=== PATIENT | male | born 1955 | race Caucasian/White ===

== ENCOUNTER 2018-01-12 11:48 | Inpatient (IN) | payer OTHER, BC ==
[2018-01-12] MEDS: diazePAM 5 MG TAB PO (13:39)
[2018-01-12 13:40] LABS: BASO % 0.5 % (0.0-1.0); EOS # 0.3 10^3/uL (0.0-0.50); HEMATOCRIT 33.7 % (42.0-52.0); HEMOGLOBIN 11.4 g/dl (13.5-17.5); IMMATURE GRANULOCYTE % 0.9 % (0-3.0); LYMPH # 1.4 10^3/uL (1.5-4.5); LYMPH % 20.4 % (24.0-44.0); MEAN CORPUSCULAR HEMOGLOBIN 33.7 pg (27.0-33.0); MEAN CORPUSCULAR HGB CONC 33.8 g/dl (32.0-36.5); MEAN CORPUSCULAR VOLUME 99.7 fl (80.0-96.0); MONO # 0.8 10^3/uL (0.0-0.8); NEUTROPHILS # 4.1 10^3/uL (1.8-7.7); NEUTROPHILS % 61.2 % (36.0-66.0); PLATELET COUNT, AUTOMATED 132 10^3/uL (150-450); RED BLOOD COUNT 3.38 10^6/uL (4.30-6.10); WHITE BLOOD COUNT 6.7 10^3/uL (4.0-10.0)
[2018-01-12] MEDS: HYDROmorphone HCL 1 MG/ML SYRINGE (J1170) IV ×3 (13:40→20:48)
[2018-01-12 14:03] LABS: LACTIC ACID SEPSIS PROTOCOL 0.8 MMOL/L (0.4-2.0)
[2018-01-12 14:04] LABS: ANION GAP 5 MEQ/L (8-16); BLOOD UREA NITROGEN 22 MG/DL (7-18); C REACTIVE PROTEIN QUANTITATIV 1.19 MG/DL (0.00-0.30); CALCIUM LEVEL 8.8 MG/DL (8.8-10.2); CARBON DIOXIDE LEVEL 23 MEQ/L (21-32); CHLORIDE LEVEL 113 MEQ/L (98-107); CREATININE FOR GFR 1.02 MG/DL (0.70-1.30); GLOMERULAR FILTRATION RATE > 60.0 (>49); GLUCOSE, FASTING 94 MG/DL (70-100); NT-PRO BNP 896 PG/ML (<125); POTASSIUM SERUM 4.6 MEQ/L (3.5-5.1); SODIUM LEVEL 141 MEQ/L (136-145)
[2018-01-12 14:07] LABS: ERYTHROCYTE SEDIMENTATION RATE 60 mm/hr (0-20)
[2018-01-12] MEDS ORDERED: ONDANSETRON 4MG/2ML VIAL (J2405) IV (15:30)
[2018-01-12] MEDS ORDERED: ACETAMINOPHEN TAB 650MG DOSE (2X325MG) PO (15:30)
[2018-01-12 15:57] LABS: ESTIMATED AVERAGE GLUCOSE 117 MG/DL (60-110); HEMOGLOBIN A1c 5.7 %
[2018-01-12] MEDS ORDERED: PROHANCE 279.3MG/ML 15ML VIAL (A9576) As Ordered (16:20)
[2018-01-12] MEDS ORDERED: PROHANCE 279.3MG/ML 5ML VIAL (A9576) As Ordered (16:20)
[2018-01-12] MEDS: GABAPENTIN 300 MG CAP PO ×2 (16:54→20:46)
[2018-01-12] MEDS: CEFTAROLINE FOSAMIL 600 MG in D5W MINI-BAG PLUS 50 ML IV (16:54)
[2018-01-12] MEDS: FUROSEMIDE 20 MG/2 ML VIAL (J1940) IV (17:27)
[2018-01-12] MEDS: SENOKOT S TAB PO (20:46)
[2018-01-12] MEDS: PRAMIPEXOLE 0.25 MG TAB PO (20:46)
[2018-01-12] MEDS: rOPINIRole 0.25 MG TAB(REQUIP) PO (20:46)
[2018-01-12] MEDS: HEPARIN SOD (PORCINE) 5000 UNITS/ML VIAL SC (23:11)
[2018-01-12] MEDS: PERCOCET 5MG/325MG TAB PO (23:12)
[2018-01-13] MEDS: HEPARIN SOD (PORCINE) 5000 UNITS/ML VIAL SC ×3 (05:25→20:35)
[2018-01-13] MEDS: CEFTAROLINE FOSAMIL 600 MG in D5W MINI-BAG PLUS 50 ML IV ×2 (05:25→17:00)
[2018-01-13 05:53] LABS: HEMATOCRIT 31.1 % (42.0-52.0); HEMOGLOBIN 10.6 g/dl (13.5-17.5); MEAN CORPUSCULAR HEMOGLOBIN 33.8 pg (27.0-33.0); MEAN CORPUSCULAR HGB CONC 34.1 g/dl (32.0-36.5); PLATELET COUNT, AUTOMATED 118 10^3/uL (150-450); RED BLOOD COUNT 3.14 10^6/uL (4.30-6.10); RED CELL DISTRIBUTION WIDTH 14.9 % (11.5-14.5); WHITE BLOOD COUNT 5.1 10^3/uL (4.0-10.0)
[2018-01-13 06:19] LABS: ANION GAP 4 MEQ/L (8-16); BLOOD UREA NITROGEN 25 MG/DL (7-18); C REACTIVE PROTEIN QUANTITATIV 1.53 MG/DL (0.00-0.30); CALCIUM LEVEL 8.6 MG/DL (8.8-10.2); CARBON DIOXIDE LEVEL 24 MEQ/L (21-32); CHLORIDE LEVEL 114 MEQ/L (98-107); CREATININE FOR GFR 1.04 MG/DL (0.70-1.30); GLOMERULAR FILTRATION RATE > 60.0 (>49); GLUCOSE, FASTING 104 MG/DL (70-100); MAGNESIUM LEVEL 1.9 MG/DL (1.8-2.4); POTASSIUM SERUM 4.6 MEQ/L (3.5-5.1); SODIUM LEVEL 142 MEQ/L (136-145)
[2018-01-13] MEDS: ASPIRIN 81 MG ENTERIC TAB PO (08:40)
[2018-01-13] MEDS: MULTIVITAMINS/MINERALS THERAP 1 TAB PO (08:40)
[2018-01-13] MEDS: GABAPENTIN 300 MG CAP PO ×3 (08:40→20:14)
[2018-01-13] MEDS: FUROSEMIDE 20 MG/2 ML VIAL (J1940) IV ×2 (08:41→16:59)
[2018-01-13] MEDS: CitaloPRAM (CeleXA) 10 MG TABLET PO (08:41)
[2018-01-13] MEDS: ALLOPURINOL 100 MG TAB PO (08:41)
[2018-01-13] MEDS: SENOKOT S TAB PO ×2 (08:41→20:35)
[2018-01-13] MEDS: VITAMIN B COMPLEX/VIT C CAP PO (08:41)
[2018-01-13] MEDS: METOPROLOL TARTRATE 100 MG TAB PO (08:41)
[2018-01-13] MEDS: HYDROmorphone HCL 1 MG/ML SYRINGE (J1170) IV ×4 (08:57→21:13)
[2018-01-13] MEDS ORDERED: amLODIPine 5 MG TAB PO (09:00)
[2018-01-13] MEDS: rOPINIRole 0.25 MG TAB(REQUIP) PO (20:15)
[2018-01-13] MEDS: PRAMIPEXOLE 0.25 MG TAB PO (20:15)
[2018-01-14] MEDS: HYDROmorphone HCL 1 MG/ML SYRINGE (J1170) IV ×4 (03:41→22:13)
[2018-01-14] MEDS: HEPARIN SOD (PORCINE) 5000 UNITS/ML VIAL SC ×3 (05:16→20:52)
[2018-01-14] MEDS: CEFTAROLINE FOSAMIL 600 MG in D5W MINI-BAG PLUS 50 ML IV ×2 (05:16→17:06)
[2018-01-14 07:04] LABS: HEMATOCRIT 29.8 % (42.0-52.0); HEMOGLOBIN 10.2 g/dl (13.5-17.5); MEAN CORPUSCULAR HEMOGLOBIN 33.8 pg (27.0-33.0); MEAN CORPUSCULAR HGB CONC 34.2 g/dl (32.0-36.5); MEAN CORPUSCULAR VOLUME 98.7 fl (80.0-96.0); PLATELET COUNT, AUTOMATED 101 10^3/uL (150-450); RED BLOOD COUNT 3.02 10^6/uL (4.30-6.10); RED CELL DISTRIBUTION WIDTH 14.9 % (11.5-14.5); WHITE BLOOD COUNT 4.5 10^3/uL (4.0-10.0)
[2018-01-14 07:21] LABS: ANION GAP 6 MEQ/L (8-16); BLOOD UREA NITROGEN 30 MG/DL (7-18); C REACTIVE PROTEIN QUANTITATIV 1.31 MG/DL (0.00-0.30); CALCIUM LEVEL 8.4 MG/DL (8.8-10.2); CARBON DIOXIDE LEVEL 24 MEQ/L (21-32); CHLORIDE LEVEL 112 MEQ/L (98-107); CREATININE FOR GFR 1.11 MG/DL (0.70-1.30); GLOMERULAR FILTRATION RATE > 60.0 (>49); GLUCOSE, FASTING 117 MG/DL (70-100); MAGNESIUM LEVEL 1.8 MG/DL (1.8-2.4); POTASSIUM SERUM 4.2 MEQ/L (3.5-5.1); SODIUM LEVEL 142 MEQ/L (136-145)
[2018-01-14] MEDS: FUROSEMIDE 20 MG/2 ML VIAL (J1940) IV ×2 (08:53→17:06)
[2018-01-14] MEDS: ASPIRIN 81 MG ENTERIC TAB PO (08:56)
[2018-01-14] MEDS: VITAMIN B COMPLEX/VIT C CAP PO (08:56)
[2018-01-14] MEDS: ALLOPURINOL 100 MG TAB PO (08:56)
[2018-01-14] MEDS: SENOKOT S TAB PO ×2 (08:56→20:53)
[2018-01-14] MEDS: CitaloPRAM (CeleXA) 10 MG TABLET PO (08:56)
[2018-01-14] MEDS: MULTIVITAMINS/MINERALS THERAP 1 TAB PO (08:56)
[2018-01-14] MEDS: METOPROLOL TARTRATE 100 MG TAB PO (08:57)
[2018-01-14] MEDS: GABAPENTIN 300 MG CAP PO ×3 (08:57→20:53)
[2018-01-14] MEDS: NEOSPORIN TOP OINT 15GM TOP (09:00)
[2018-01-14] MEDS: PERCOCET 5MG/325MG TAB PO ×2 (15:03→20:53)
[2018-01-14] MEDS: rOPINIRole 0.25 MG TAB(REQUIP) PO (20:54)
[2018-01-14] MEDS: PRAMIPEXOLE 0.25 MG TAB PO (20:54)
[2018-01-15] MEDS: CEFTAROLINE FOSAMIL 600 MG in D5W MINI-BAG PLUS 50 ML IV ×2 (05:13→12:40)
[2018-01-15] MEDS: PERCOCET 5MG/325MG TAB PO (05:13)
[2018-01-15 06:28] LABS: HEMATOCRIT 29.8 % (42.0-52.0); HEMOGLOBIN 10.2 g/dl (13.5-17.5); MEAN CORPUSCULAR HEMOGLOBIN 33.8 pg (27.0-33.0); MEAN CORPUSCULAR HGB CONC 34.2 g/dl (32.0-36.5); MEAN CORPUSCULAR VOLUME 98.7 fl (80.0-96.0); PLATELET COUNT, AUTOMATED 114 10^3/uL (150-450); RED BLOOD COUNT 3.02 10^6/uL (4.30-6.10); RED CELL DISTRIBUTION WIDTH 14.6 % (11.5-14.5); WHITE BLOOD COUNT 4.5 10^3/uL (4.0-10.0)
[2018-01-15 06:42] LABS: ANION GAP 4 MEQ/L (8-16); BLOOD UREA NITROGEN 39 MG/DL (7-18); C REACTIVE PROTEIN QUANTITATIV 0.99 MG/DL (0.00-0.30); CALCIUM LEVEL 8.5 MG/DL (8.8-10.2); CARBON DIOXIDE LEVEL 26 MEQ/L (21-32); CHLORIDE LEVEL 111 MEQ/L (98-107); CREATININE FOR GFR 1.16 MG/DL (0.70-1.30); GLOMERULAR FILTRATION RATE > 60.0 (>49); GLUCOSE, FASTING 111 MG/DL (70-100); MAGNESIUM LEVEL 1.9 MG/DL (1.8-2.4); POTASSIUM SERUM 3.8 MEQ/L (3.5-5.1); SODIUM LEVEL 141 MEQ/L (136-145)
[2018-01-15] MEDS: HEPARIN SOD (PORCINE) 5000 UNITS/ML VIAL SC (07:40)
[2018-01-15] MEDS: FUROSEMIDE 20 MG/2 ML VIAL (J1940) IV (09:03)
[2018-01-15] MEDS: ASPIRIN 81 MG ENTERIC TAB PO (09:03)
[2018-01-15] MEDS: GABAPENTIN 300 MG CAP PO (09:03)
[2018-01-15] MEDS: ALLOPURINOL 100 MG TAB PO (09:03)
[2018-01-15] MEDS: VITAMIN B COMPLEX/VIT C CAP PO (09:03)
[2018-01-15] MEDS: CitaloPRAM (CeleXA) 10 MG TABLET PO (09:03)
[2018-01-15] MEDS: METOPROLOL TARTRATE 100 MG TAB PO (09:04)
[2018-01-15] MEDS: SENOKOT S TAB PO (09:04)
[2018-01-15] MEDS: NEOSPORIN TOP OINT 15GM TOP (09:04)
[2018-01-15] MEDS: MULTIVITAMINS/MINERALS THERAP 1 TAB PO (09:04)
== END 2018-01-15 14:10 | disposition home or self-care (01) | DRG 951 ==
LOC: M PED 01-13 18:15 → M ED 11:48 → M ED INP 15:18 → M MSPAV 17:08
PROC: 0JDQ0ZZ Extraction of Right Foot Subcutaneous Tissue and Fascia, Open Approach (ICD-10-PCS; principal; 2018-01-12)
DX: E11.622 Type 2 diabetes mellitus with other skin ulcer (principal); I50.32 Chronic diastolic (congestive) heart failure; L03.115 Cellulitis of right lower limb; E66.01 Morbid (severe) obesity due to excess calories; G47.33 Obstructive sleep apnea (adult) (pediatric); Z88.0 Allergy status to penicillin; Z88.2 Allergy status to sulfonamides; Z79.899 Other long term (current) drug therapy

== ENCOUNTER 2018-06-10 14:40 | Inpatient (IN) | payer OTHER ==
[2018-06-10 15:29] LABS: BASO % 0.4 % (0.0-1.0); EOS # 0.2 10^3/uL (0.0-0.50); EOS % 2.1 % (0.0-3.0); HEMATOCRIT 38.1 % (42.0-52.0); HEMOGLOBIN 13.1 g/dl (13.5-17.5); IMMATURE GRANULOCYTE % 0.7 % (0-3.0); LYMPH % 12.1 % (24.0-44.0); MEAN CORPUSCULAR HEMOGLOBIN 33.2 pg (27.0-33.0); MEAN CORPUSCULAR HGB CONC 34.4 g/dl (32.0-36.5); MEAN CORPUSCULAR VOLUME 96.5 fl (80.0-96.0); MONO # 0.9 10^3/uL (0.0-0.8); MONO % 10.7 % (0.0-5.0); NEUTROPHILS # 6.3 10^3/uL (1.8-7.7); PLATELET COUNT, AUTOMATED 132 10^3/uL (150-450); RED BLOOD COUNT 3.95 10^6/uL (4.30-6.10); RED CELL DISTRIBUTION WIDTH 14.7 % (11.5-14.5); WHITE BLOOD COUNT 8.6 10^3/uL (4.0-10.0)
[2018-06-10] MEDS: ACETAMINOPHEN 325 MG TAB PO (15:39)
[2018-06-10] MEDS: NS 1,000 ML IV ×3 (15:40→20:15)
[2018-06-10] MEDS: VANCOMYCIN HCL 1,000 MG, VIAL MATE ADAPTER 1 EACH in D5W 250 ML IV (15:46)
[2018-06-10 15:49] LABS: ALBUMIN 3.7 GM/DL (3.2-5.2); ALBUMIN/GLOBULIN RATIO 0.88 (1.00-1.93); ALKALINE PHOSPHATASE 151 U/L (45-117); ALT/SGPT 35 U/L (12-78); ANION GAP 11 MEQ/L (8-16); BILIRUBIN,DIRECT 0.3 MG/DL (0.0-0.2); BILIRUBIN,TOTAL 1.2 MG/DL (0.2-1.0); BLOOD UREA NITROGEN 23 MG/DL (7-18); CALCIUM LEVEL 8.9 MG/DL (8.8-10.2); CARBON DIOXIDE LEVEL 24 MEQ/L (21-32); CHLORIDE LEVEL 102 MEQ/L (98-107); CREATININE FOR GFR 1.27 MG/DL (0.70-1.30); GLOMERULAR FILTRATION RATE > 60.0 (>49); GLUCOSE, FASTING 159 MG/DL (70-100); POTASSIUM SERUM 4.6 MEQ/L (3.5-5.1); SODIUM LEVEL 137 MEQ/L (136-145); TOTAL PROTEIN 7.9 GM/DL (6.4-8.2)
[2018-06-10 15:50] LABS: AST/SGOT 49 U/L (7-37)
[2018-06-10 16:05] LABS: APPEARANCE, URINE CLEAR (CLEAR); BACTERIA, URINE AUTO NEGATIVE (NEGATIVE); BILIRUBIN, URINE AUTO NEGATIVE (NEGATIVE); BLOOD, URINE BLOOD NEGATIVE (NEGATIVE); COLOR, URINE YELLOW (YELLOW); GLUCOSE, URINE (UA) AUTO NEGATIVE (NEGATIVE); KETONE, URINE AUTO NEGATIVE (NEGATIVE); LEUKOCYTE ESTERASE, URINE AUTO NEGATIVE (NEGATIVE); NITRITE, URINE AUTO NEGATIVE (NEGATIVE); PROTEIN, URINE AUTO NEGATIVE (NEGATIVE); RBC, URINE AUTO 0 /HPF (0-3); SPECIFIC GRAVITY URINE AUTO 1.008 (1.002-1.035); SQUAMOUS EPITHELIAL CELL UR AU 0 /HPF (0-6); UROBILINOGEN, URINE AUTO 0.2 mg/dL (0.0-2.0); WBC, URINE AUTO 0 /HPF (0-3)
[2018-06-10 16:33] LABS: INFLUENZA A AMPLIFICATION NEGATIVE (NEGATIVE); INFLUENZA B AMPLIFICATION NEGATIVE (NEGATIVE)
[2018-06-10 16:53] LABS: ERYTHROCYTE SEDIMENTATION RATE 61 mm/hr (0-20)
[2018-06-10] MEDS: ONDANSETRON 4MG/2ML VIAL (J2405) IV (17:08)
[2018-06-10] MEDS: MORPHINE 2 MG/ML 1ML SYRINGE (J2270) IV (17:11)
[2018-06-10] MEDS: IBUPROFEN 800 MG TAB PO (17:18)
[2018-06-10] MEDS ORDERED: ONDANSETRON 4MG/2ML VIAL (J2405) IV (17:45)
[2018-06-10 17:52] LABS: CK-MB VALUE MASS < 1.0 NG/ML (<3.6); CPK CREATINE PHOSPHOKINASE 115 U/L (39-308); MB/CK RELATIVE INDEX 0.87 (< OR =4); TROPONIN I < 0.02 NG/ML (< 0.10)
[2018-06-10] MEDS: MEROPENEM INJ 1 GM in APPROPRIATE DILUENT 1 EA IV (18:49)
[2018-06-10] MEDS: GABAPENTIN 300 MG CAP PO (22:30)
[2018-06-10] MEDS: MORPHINE 15 MG SA TAB PO (22:30)
[2018-06-10] MEDS: PRAMIPEXOLE 1 MG TAB PO (22:31)
[2018-06-11] MEDS: MEROPENEM INJ 1 GM in APPROPRIATE DILUENT 1 EA IV ×3 (03:27→20:56)
[2018-06-11 05:52] LABS: BASO % 0.2 % (0.0-1.0); EOS # 0.3 10^3/uL (0.0-0.50); EOS % 3.2 % (0.0-3.0); HEMATOCRIT 32.6 % (42.0-52.0); IMMATURE GRANULOCYTE % 0.8 % (0-3.0); LYMPH # 1.7 10^3/uL (1.5-4.5); MEAN CORPUSCULAR HEMOGLOBIN 32.9 pg (27.0-33.0); MEAN CORPUSCULAR VOLUME 96.7 fl (80.0-96.0); MONO # 1.1 10^3/uL (0.0-0.8); MONO % 12.2 % (0.0-5.0); NEUTROPHILS # 5.9 10^3/uL (1.8-7.7); NEUTROPHILS % 64.6 % (36.0-66.0); PLATELET COUNT, AUTOMATED 116 10^3/uL (150-450); RED BLOOD COUNT 3.37 10^6/uL (4.30-6.10); WHITE BLOOD COUNT 9.1 10^3/uL (4.0-10.0)
[2018-06-11 06:00] LABS: HEMOGLOBIN 11.1 g/dl (13.5-17.5)
[2018-06-11 06:23] LABS: ALBUMIN 2.8 GM/DL (3.2-5.2); ALKALINE PHOSPHATASE 106 U/L (45-117); ALT/SGPT 22 U/L (12-78); ANION GAP 9 MEQ/L (8-16); AST/SGOT 29 U/L (7-37); BILIRUBIN,TOTAL 1.4 MG/DL (0.2-1.0); BLOOD UREA NITROGEN 32 MG/DL (7-18); C REACTIVE PROTEIN QUANTITATIV 7.21 MG/DL (0.00-0.30); CALCIUM LEVEL 7.8 MG/DL (8.8-10.2); CARBON DIOXIDE LEVEL 24 MEQ/L (21-32); CHLORIDE LEVEL 108 MEQ/L (98-107); CREATININE FOR GFR 1.69 MG/DL (0.70-1.30); GLUCOSE, FASTING 105 MG/DL (70-100); MAGNESIUM LEVEL 1.8 MG/DL (1.8-2.4); POTASSIUM SERUM 4.1 MEQ/L (3.5-5.1); SODIUM LEVEL 141 MEQ/L (136-145); TOTAL PROTEIN 6.3 GM/DL (6.4-8.2)
[2018-06-11] MEDS: NS 1,000 ML IV (06:39)
[2018-06-11] MEDS ORDERED: NS 1,000 ML IV (07:45)
[2018-06-11] MEDS: GABAPENTIN 300 MG CAP PO ×3 (08:03→20:56)
[2018-06-11] MEDS: VITAMIN B COMPLEX/VIT C CAP PO (08:03)
[2018-06-11] MEDS: MULTIVITAMINS/MINERALS THERAP 1 TAB PO (08:03)
[2018-06-11] MEDS: ALLOPURINOL 100 MG TAB PO (08:04)
[2018-06-11] MEDS: MORPHINE 15 MG SA TAB PO ×2 (08:05→20:56)
[2018-06-11] MEDS ORDERED: METOPROLOL TARTRATE 100 MG TAB PO (09:00)
[2018-06-11] MEDS: PERCOCET 5MG/325MG TAB PO ×2 (09:00→14:29)
[2018-06-11] MEDS ORDERED: amLODIPine 5 MG TAB PO (09:00)
[2018-06-11] MEDS: ENOXAPARIN 40 MG/0.4 ML SYRINGE (J1650) SC (09:31)
[2018-06-11] MEDS: PRAMIPEXOLE 1 MG TAB PO (20:56)
[2018-06-12] MEDS: NS 1,000 ML IV (00:02)
[2018-06-12] MEDS: PERCOCET 5MG/325MG TAB PO ×3 (03:47→22:30)
[2018-06-12] MEDS: MEROPENEM INJ 1 GM in APPROPRIATE DILUENT 1 EA IV ×3 (03:47→18:50)
[2018-06-12 05:55] LABS: BASO % 0.4 % (0.0-1.0); EOS # 0.2 10^3/uL (0.0-0.50); EOS % 4.7 % (0.0-3.0); IMMATURE GRANULOCYTE % 1.1 % (0-3.0); LYMPH # 0.8 10^3/uL (1.5-4.5); MEAN CORPUSCULAR HEMOGLOBIN 33.1 pg (27.0-33.0); MEAN CORPUSCULAR HGB CONC 33.3 g/dl (32.0-36.5); MEAN CORPUSCULAR VOLUME 99.4 fl (80.0-96.0); MONO # 0.6 10^3/uL (0.0-0.8); MONO % 12.9 % (0.0-5.0); NEUTROPHILS # 2.9 10^3/uL (1.8-7.7); NEUTROPHILS % 62.9 % (36.0-66.0); PLATELET COUNT, AUTOMATED 113 10^3/uL (150-450); RED BLOOD COUNT 3.32 10^6/uL (4.30-6.10); RED CELL DISTRIBUTION WIDTH 14.9 % (11.5-14.5); WHITE BLOOD COUNT 4.7 10^3/uL (4.0-10.0)
[2018-06-12 06:35] LABS: ALBUMIN 2.7 GM/DL (3.2-5.2); ALBUMIN/GLOBULIN RATIO 0.71 (1.00-1.93); ALKALINE PHOSPHATASE 112 U/L (45-117); ALT/SGPT 18 U/L (12-78); ANION GAP 9 MEQ/L (8-16); AST/SGOT 30 U/L (7-37); BILIRUBIN,TOTAL 0.6 MG/DL (0.2-1.0); BLOOD UREA NITROGEN 21 MG/DL (7-18); C REACTIVE PROTEIN QUANTITATIV 6.18 MG/DL (0.00-0.30); CALCIUM LEVEL 8.3 MG/DL (8.8-10.2); CARBON DIOXIDE LEVEL 24 MEQ/L (21-32); CHLORIDE LEVEL 110 MEQ/L (98-107); CREATININE FOR GFR 1.19 MG/DL (0.70-1.30); GLOMERULAR FILTRATION RATE > 60.0 (>49); GLUCOSE, FASTING 165 MG/DL (70-100); MAGNESIUM LEVEL 1.9 MG/DL (1.8-2.4); POTASSIUM SERUM 4.2 MEQ/L (3.5-5.1); SODIUM LEVEL 143 MEQ/L (136-145); TOTAL PROTEIN 6.5 GM/DL (6.4-8.2)
[2018-06-12] MEDS ORDERED: SLF 3 ML SYR IV (08:00)
[2018-06-12] MEDS: VITAMIN B COMPLEX/VIT C CAP PO (08:49)
[2018-06-12] MEDS: GABAPENTIN 300 MG CAP PO ×2 (08:49→15:49)
[2018-06-12] MEDS: MULTIVITAMINS/MINERALS THERAP 1 TAB PO (08:50)
[2018-06-12] MEDS: ALLOPURINOL 100 MG TAB PO (08:50)
[2018-06-12] MEDS: SLF 3 ML SYR IV (14:00)
[2018-06-12] MEDS: hydroCHLOROthiazide 25 MG TAB PO (15:33)
[2018-06-12] MEDS: SPIRONOLACTONE 25 MG TAB PO (15:33)
[2018-06-12] MEDS: LIDOCAINE 1% MDV 20ML VIAL As Ordered (19:36)
[2018-06-12] MEDS: BUPIVACAINE HCL 0.5% 10 ML VIAL As Ordered ×2 (19:36)
[2018-06-12] MEDS ORDERED: fentaNYL 100 MCG/2 ML INJECTION (J3010) As Ordered ×2 (19:38→22:30)
[2018-06-12] MEDS ORDERED: LIDOCAINE 2% INJ 100 MG/5 ML SDV (FOR ANES.) As Ordered (19:38)
[2018-06-12] MEDS ORDERED: PROPOFOL 200 MG/20 ML VIAL As Ordered (19:38)
[2018-06-12] MEDS ORDERED: MIDAZOLAM INJ 2 MG/2 ML VIAL (J2250) As Ordered (19:39)
[2018-06-12] MEDS ORDERED: PROPOFOL 500 MG/50 ML VIAL As Ordered (19:53)
[2018-06-12] MEDS ORDERED: ONDANSETRON 4MG/2ML VIAL (J2405) IV (21:15)
[2018-06-12] MEDS: LR 1,000 ML IV (21:15)
[2018-06-12] MEDS ORDERED: MORPHINE 4 MG/ML 1ML VIAL/SYRINGE (J2270) IV (21:15)
[2018-06-12] MEDS ORDERED: PERCOCET 5MG/325MG TAB As Ordered (22:30)
[2018-06-12] MEDS: fentaNYL 100 MCG/2 ML INJECTION (J3010) IV ×2 (22:30→22:35)
[2018-06-13] MEDS: PRAMIPEXOLE 1 MG TAB PO ×2 (00:04→20:33)
[2018-06-13] MEDS: SLF 3 ML SYR IV ×4 (00:05→20:33)
[2018-06-13] MEDS: GABAPENTIN 300 MG CAP PO ×4 (00:05→20:32)
[2018-06-13] MEDS: MORPHINE 15 MG SA TAB PO ×3 (01:24→20:33)
[2018-06-13] MEDS: MEROPENEM INJ 1 GM in APPROPRIATE DILUENT 1 EA IV ×3 (03:58→18:13)
[2018-06-13 04:09] LABS: BEDSIDE GLUCOSE 109 MG/DL (80-115)
[2018-06-13 05:47] LABS: BASO % 0.4 % (0.0-1.0); EOS # 0.2 10^3/uL (0.0-0.50); EOS % 5.1 % (0.0-3.0); HEMATOCRIT 32.2 % (42.0-52.0); IMMATURE GRANULOCYTE % 0.7 % (0-3.0); LYMPH # 0.8 10^3/uL (1.5-4.5); LYMPH % 17.2 % (24.0-44.0); MEAN CORPUSCULAR HGB CONC 34.2 g/dl (32.0-36.5); MEAN CORPUSCULAR VOLUME 96.7 fl (80.0-96.0); MONO # 0.6 10^3/uL (0.0-0.8); MONO % 13.2 % (0.0-5.0); NEUTROPHILS # 2.9 10^3/uL (1.8-7.7); NEUTROPHILS % 63.4 % (36.0-66.0); PLATELET COUNT, AUTOMATED 126 10^3/uL (150-450); RED BLOOD COUNT 3.33 10^6/uL (4.30-6.10); RED CELL DISTRIBUTION WIDTH 14.8 % (11.5-14.5); WHITE BLOOD COUNT 4.5 10^3/uL (4.0-10.0)
[2018-06-13 06:28] LABS: ALBUMIN 2.9 GM/DL (3.2-5.2); ALBUMIN/GLOBULIN RATIO 0.81 (1.00-1.93); ALKALINE PHOSPHATASE 108 U/L (45-117); ALT/SGPT 23 U/L (12-78); ANION GAP 6 MEQ/L (8-16); AST/SGOT 28 U/L (7-37); BILIRUBIN,TOTAL 0.8 MG/DL (0.2-1.0); BLOOD UREA NITROGEN 16 MG/DL (7-18); C REACTIVE PROTEIN QUANTITATIV 3.55 MG/DL (0.00-0.30); CALCIUM LEVEL 8.6 MG/DL (8.8-10.2); CARBON DIOXIDE LEVEL 28 MEQ/L (21-32); CHLORIDE LEVEL 107 MEQ/L (98-107); GLOMERULAR FILTRATION RATE > 60.0 (>49); GLUCOSE, FASTING 104 MG/DL (70-100); MAGNESIUM LEVEL 1.6 MG/DL (1.8-2.4); POTASSIUM SERUM 4.3 MEQ/L (3.5-5.1); SODIUM LEVEL 141 MEQ/L (136-145); TOTAL PROTEIN 6.5 GM/DL (6.4-8.2)
[2018-06-13] MEDS: MULTIVITAMINS/MINERALS THERAP 1 TAB PO (08:47)
[2018-06-13] MEDS: ALLOPURINOL 100 MG TAB PO (08:47)
[2018-06-13] MEDS: VITAMIN B COMPLEX/VIT C CAP PO (08:47)
[2018-06-13] MEDS: MAG SULF 1GM/100ML (MAG RUN) 1 GM in APPROPRIATE DILUENT 1 EA IV (08:47)
[2018-06-13] MEDS: FUROSEMIDE 40 MG TAB PO (08:48)
[2018-06-13] MEDS: PERCOCET 5MG/325MG TAB PO ×2 (08:49→18:12)
[2018-06-13 09:42] LABS: BEDSIDE GLUCOSE 156 MG/DL (80-115)
[2018-06-13] MEDS: ACETAMINOPHEN TAB 650MG DOSE (2X325MG) PO (10:26)
[2018-06-13] MEDS: METOPROLOL TARTRATE 100 MG TAB PO (18:45)
[2018-06-13] MEDS: amLODIPine 5 MG TAB PO (18:47)
[2018-06-14] MEDS: MEROPENEM INJ 1 GM in APPROPRIATE DILUENT 1 EA IV ×3 (03:15→17:58)
[2018-06-14 06:10] LABS: BASO % 0.6 % (0.0-1.0); EOS # 0.3 10^3/uL (0.0-0.50); EOS % 4.7 % (0.0-3.0); HEMOGLOBIN 10.7 g/dl (13.5-17.5); IMMATURE GRANULOCYTE % 1.3 % (0-3.0); LYMPH # 0.9 10^3/uL (1.5-4.5); LYMPH % 17.6 % (24.0-44.0); MEAN CORPUSCULAR HEMOGLOBIN 33.1 pg (27.0-33.0); MEAN CORPUSCULAR HGB CONC 34.5 g/dl (32.0-36.5); MONO # 0.8 10^3/uL (0.0-0.8); MONO % 14.2 % (0.0-5.0); NEUTROPHILS # 3.3 10^3/uL (1.8-7.7); NEUTROPHILS % 61.6 % (36.0-66.0); PLATELET COUNT, AUTOMATED 136 10^3/uL (150-450); RED BLOOD COUNT 3.23 10^6/uL (4.30-6.10); RED CELL DISTRIBUTION WIDTH 14.5 % (11.5-14.5); WHITE BLOOD COUNT 5.3 10^3/uL (4.0-10.0)
[2018-06-14 06:29] LABS: ALBUMIN 2.5 GM/DL (3.2-5.2); ALBUMIN/GLOBULIN RATIO 0.61 (1.00-1.93); ALKALINE PHOSPHATASE 104 U/L (45-117); ALT/SGPT 20 U/L (12-78); ANION GAP 6 MEQ/L (8-16); AST/SGOT 28 U/L (7-37); BILIRUBIN,TOTAL 0.9 MG/DL (0.2-1.0); BLOOD UREA NITROGEN 21 MG/DL (7-18); C REACTIVE PROTEIN QUANTITATIV 6.03 MG/DL (0.00-0.30); CALCIUM LEVEL 7.6 MG/DL (8.8-10.2); CARBON DIOXIDE LEVEL 27 MEQ/L (21-32); CHLORIDE LEVEL 105 MEQ/L (98-107); CREATININE FOR GFR 1.09 MG/DL (0.70-1.30); GLOMERULAR FILTRATION RATE > 60.0 (>49); GLUCOSE, FASTING 105 MG/DL (70-100); MAGNESIUM LEVEL 1.6 MG/DL (1.8-2.4); POTASSIUM SERUM 4.2 MEQ/L (3.5-5.1); SODIUM LEVEL 138 MEQ/L (136-145); TOTAL PROTEIN 6.6 GM/DL (6.4-8.2)
[2018-06-14] MEDS: SLF 3 ML SYR IV ×3 (06:37→21:12)
[2018-06-14] MEDS: SPIRONOLACTONE 25 MG TAB PO (08:10)
[2018-06-14] MEDS: MAG SULF 1GM/100ML (MAG RUN) 1 GM in APPROPRIATE DILUENT 1 EA IV ×2 (08:10→09:17)
[2018-06-14] MEDS: ASCORBIC ACID 500 MG TAB PO (08:11)
[2018-06-14] MEDS: GABAPENTIN 300 MG CAP PO ×3 (08:11→21:12)
[2018-06-14] MEDS: MULTIVITAMINS/MINERALS THERAP 1 TAB PO (08:12)
[2018-06-14] MEDS: METOPROLOL TARTRATE 100 MG TAB PO (08:12)
[2018-06-14] MEDS: FUROSEMIDE 40 MG TAB PO (08:12)
[2018-06-14] MEDS: CitaloPRAM (CeleXA) 20 MG TAB PO (08:12)
[2018-06-14] MEDS: ALLOPURINOL 100 MG TAB PO (08:12)
[2018-06-14] MEDS: amLODIPine 5 MG TAB PO (08:13)
[2018-06-14] MEDS: VITAMIN B COMPLEX/VIT C CAP PO (08:13)
[2018-06-14] MEDS: MORPHINE 15 MG SA TAB PO ×2 (08:13→21:14)
[2018-06-14] MEDS: hydroCHLOROthiazide 25 MG TAB PO (08:13)
[2018-06-14] MEDS: ACETAMINOPHEN TAB 650MG DOSE (2X325MG) PO (09:20)
[2018-06-14] MEDS: diphenhydrAMINE CREAM 30GM TOP ×2 (11:23→21:19)
[2018-06-14] MEDS: PERCOCET 5MG/325MG TAB PO (15:35)
[2018-06-14] MEDS ORDERED: tiZANidine 4 MG TAB PO (16:45)
[2018-06-14] MEDS ORDERED: PILL CRUSHER/CUTTER 1 EACH XX (18:15)
[2018-06-14] MEDS: PRAMIPEXOLE 1 MG TAB PO (21:12)
[2018-06-15] MEDS: PERCOCET 5MG/325MG TAB PO ×3 (00:31→16:59)
[2018-06-15] MEDS: MEROPENEM INJ 1 GM in APPROPRIATE DILUENT 1 EA IV ×3 (03:31→18:04)
[2018-06-15] MEDS: SLF 3 ML SYR IV ×3 (05:20→21:16)
[2018-06-15 05:49] LABS: BASO % 0.4 % (0.0-1.0); EOS # 0.2 10^3/uL (0.0-0.50); EOS % 4.6 % (0.0-3.0); HEMATOCRIT 31.9 % (42.0-52.0); HEMOGLOBIN 10.9 g/dl (13.5-17.5); IMMATURE GRANULOCYTE % 1.9 % (0-3.0); LYMPH # 0.8 10^3/uL (1.5-4.5); LYMPH % 15.3 % (24.0-44.0); MEAN CORPUSCULAR HEMOGLOBIN 33.2 pg (27.0-33.0); MEAN CORPUSCULAR HGB CONC 34.2 g/dl (32.0-36.5); MEAN CORPUSCULAR VOLUME 97.3 fl (80.0-96.0); MONO # 0.6 10^3/uL (0.0-0.8); MONO % 10.6 % (0.0-5.0); NEUTROPHILS # 3.5 10^3/uL (1.8-7.7); NEUTROPHILS % 67.2 % (36.0-66.0); PLATELET COUNT, AUTOMATED 136 10^3/uL (150-450); RED BLOOD COUNT 3.28 10^6/uL (4.30-6.10); RED CELL DISTRIBUTION WIDTH 14.1 % (11.5-14.5); WHITE BLOOD COUNT 5.2 10^3/uL (4.0-10.0)
[2018-06-15 06:07] LABS: ALBUMIN 2.8 GM/DL (3.2-5.2); ALKALINE PHOSPHATASE 105 U/L (45-117); ALT/SGPT 19 U/L (12-78); ANION GAP 7 MEQ/L (8-16); AST/SGOT 23 U/L (7-37); BILIRUBIN,TOTAL 0.7 MG/DL (0.2-1.0); BLOOD UREA NITROGEN 21 MG/DL (7-18); C REACTIVE PROTEIN QUANTITATIV 5.83 MG/DL (0.00-0.30); CALCIUM LEVEL 8.5 MG/DL (8.8-10.2); CARBON DIOXIDE LEVEL 27 MEQ/L (21-32); CHLORIDE LEVEL 105 MEQ/L (98-107); CREATININE FOR GFR 0.88 MG/DL (0.70-1.30); GLOMERULAR FILTRATION RATE > 60.0 (>49); GLUCOSE, FASTING 101 MG/DL (70-100); MAGNESIUM LEVEL 1.9 MG/DL (1.8-2.4); SODIUM LEVEL 139 MEQ/L (136-145); TOTAL PROTEIN 6.8 GM/DL (6.4-8.2)
[2018-06-15] MEDS: MAGNESIUM OXIDE 400 MG TAB (MAG-OX) PO (09:00)
[2018-06-15] MEDS: MULTIVITAMINS/MINERALS THERAP 1 TAB PO (09:00)
[2018-06-15] MEDS: ALLOPURINOL 100 MG TAB PO (09:01)
[2018-06-15] MEDS: GABAPENTIN 300 MG CAP PO ×3 (09:01→21:15)
[2018-06-15] MEDS: METOPROLOL TARTRATE 100 MG TAB PO (09:01)
[2018-06-15] MEDS: FUROSEMIDE 40 MG TAB PO (09:01)
[2018-06-15] MEDS: CitaloPRAM (CeleXA) 20 MG TAB PO (09:02)
[2018-06-15] MEDS: amLODIPine 5 MG TAB PO ×2 (09:02→21:16)
[2018-06-15] MEDS: ASCORBIC ACID 500 MG TAB PO (09:02)
[2018-06-15] MEDS: VITAMIN B COMPLEX/VIT C CAP PO (09:02)
[2018-06-15] MEDS: MORPHINE 15 MG SA TAB PO ×2 (09:03→21:15)
[2018-06-15] MEDS: PRAMIPEXOLE 1 MG TAB PO (21:14)
[2018-06-16] MEDS: MEROPENEM INJ 1 GM in APPROPRIATE DILUENT 1 EA IV ×3 (02:36→18:22)
[2018-06-16] MEDS: SLF 3 ML SYR IV ×3 (05:00→21:57)
[2018-06-16 06:24] LABS: BASO % 0.5 % (0.0-1.0); EOS # 0.3 10^3/uL (0.0-0.50); EOS % 4.8 % (0.0-3.0); HEMATOCRIT 31.6 % (42.0-52.0); HEMOGLOBIN 10.9 g/dl (13.5-17.5); IMMATURE GRANULOCYTE % 1.7 % (0-3.0); LYMPH # 1.1 10^3/uL (1.5-4.5); LYMPH % 18.2 % (24.0-44.0); MEAN CORPUSCULAR HGB CONC 34.5 g/dl (32.0-36.5); MEAN CORPUSCULAR VOLUME 95.8 fl (80.0-96.0); MONO # 0.7 10^3/uL (0.0-0.8); NEUTROPHILS # 3.8 10^3/uL (1.8-7.7); NEUTROPHILS % 63.8 % (36.0-66.0); PLATELET COUNT, AUTOMATED 167 10^3/uL (150-450); RED CELL DISTRIBUTION WIDTH 14.2 % (11.5-14.5)
[2018-06-16 06:44] LABS: ALBUMIN 2.9 GM/DL (3.2-5.2); ALBUMIN/GLOBULIN RATIO 0.74 (1.00-1.93); ALKALINE PHOSPHATASE 104 U/L (45-117); ALT/SGPT 20 U/L (12-78); ANION GAP 8 MEQ/L (8-16); AST/SGOT 26 U/L (7-37); BILIRUBIN,TOTAL 0.6 MG/DL (0.2-1.0); BLOOD UREA NITROGEN 21 MG/DL (7-18); C REACTIVE PROTEIN QUANTITATIV 3.85 MG/DL (0.00-0.30); CALCIUM LEVEL 8.3 MG/DL (8.8-10.2); CARBON DIOXIDE LEVEL 27 MEQ/L (21-32); CHLORIDE LEVEL 105 MEQ/L (98-107); CREATININE FOR GFR 0.86 MG/DL (0.70-1.30); GLOMERULAR FILTRATION RATE > 60.0 (>49); GLUCOSE, FASTING 104 MG/DL (70-100); MAGNESIUM LEVEL 1.7 MG/DL (1.8-2.4); SODIUM LEVEL 140 MEQ/L (136-145); TOTAL PROTEIN 6.8 GM/DL (6.4-8.2)
[2018-06-16] MEDS: SPIRONOLACTONE 25 MG TAB PO (07:58)
[2018-06-16] MEDS: CitaloPRAM (CeleXA) 20 MG TAB PO (07:58)
[2018-06-16] MEDS: ALLOPURINOL 100 MG TAB PO (07:58)
[2018-06-16] MEDS: MAG SULF 1GM/100ML (MAG RUN) 1 GM in APPROPRIATE DILUENT 1 EA IV (07:58)
[2018-06-16] MEDS: hydroCHLOROthiazide 25 MG TAB PO (07:58)
[2018-06-16] MEDS: FUROSEMIDE 40 MG TAB PO (07:59)
[2018-06-16] MEDS: amLODIPine 5 MG TAB PO (07:59)
[2018-06-16] MEDS: GABAPENTIN 300 MG CAP PO ×3 (07:59→21:57)
[2018-06-16] MEDS: PERCOCET 5MG/325MG TAB PO ×2 (08:00→16:24)
[2018-06-16] MEDS: ASCORBIC ACID 500 MG TAB PO (08:00)
[2018-06-16] MEDS: METOPROLOL TARTRATE 100 MG TAB PO (08:00)
[2018-06-16] MEDS: MAGNESIUM OXIDE 400 MG TAB (MAG-OX) PO (08:00)
[2018-06-16] MEDS: MULTIVITAMINS/MINERALS THERAP 1 TAB PO (08:01)
[2018-06-16] MEDS: MORPHINE 15 MG SA TAB PO ×2 (08:02→21:57)
[2018-06-16] MEDS: VITAMIN B COMPLEX/VIT C CAP PO (08:20)
[2018-06-16] MEDS: PRAMIPEXOLE 1 MG TAB PO (21:56)
[2018-06-16] MEDS: diphenhydrAMINE CREAM 30GM TOP (23:52)
[2018-06-17] MEDS: MEROPENEM INJ 1 GM in APPROPRIATE DILUENT 1 EA IV ×3 (03:53→18:30)
[2018-06-17] MEDS: SLF 3 ML SYR IV ×3 (05:06→21:24)
[2018-06-17 05:56] LABS: BASO % 0.5 % (0.0-1.0); EOS # 0.3 10^3/uL (0.0-0.50); EOS % 4.7 % (0.0-3.0); HEMATOCRIT 31.1 % (42.0-52.0); HEMOGLOBIN 10.8 g/dl (13.5-17.5); IMMATURE GRANULOCYTE % 2.9 % (0-3.0); LYMPH # 1.1 10^3/uL (1.5-4.5); LYMPH % 19.1 % (24.0-44.0); MEAN CORPUSCULAR HGB CONC 34.7 g/dl (32.0-36.5); MEAN CORPUSCULAR VOLUME 95.1 fl (80.0-96.0); MONO # 0.6 10^3/uL (0.0-0.8); MONO % 11.2 % (0.0-5.0); NEUTROPHILS # 3.4 10^3/uL (1.8-7.7); NEUTROPHILS % 61.6 % (36.0-66.0); PLATELET COUNT, AUTOMATED 175 10^3/uL (150-450); RED BLOOD COUNT 3.27 10^6/uL (4.30-6.10); RED CELL DISTRIBUTION WIDTH 14.1 % (11.5-14.5); WHITE BLOOD COUNT 5.6 10^3/uL (4.0-10.0)
[2018-06-17 06:17] LABS: ALBUMIN 2.8 GM/DL (3.2-5.2); ALBUMIN/GLOBULIN RATIO 0.72 (1.00-1.93); ALKALINE PHOSPHATASE 105 U/L (45-117); ALT/SGPT 23 U/L (12-78); ANION GAP 5 MEQ/L (8-16); AST/SGOT 30 U/L (7-37); BILIRUBIN,TOTAL 0.6 MG/DL (0.2-1.0); BLOOD UREA NITROGEN 22 MG/DL (7-18); C REACTIVE PROTEIN QUANTITATIV 2.79 MG/DL (0.00-0.30); CALCIUM LEVEL 8.6 MG/DL (8.8-10.2); CARBON DIOXIDE LEVEL 29 MEQ/L (21-32); CHLORIDE LEVEL 106 MEQ/L (98-107); CREATININE FOR GFR 0.92 MG/DL (0.70-1.30); GLOMERULAR FILTRATION RATE > 60.0 (>49); GLUCOSE, FASTING 100 MG/DL (70-100); MAGNESIUM LEVEL 1.9 MG/DL (1.8-2.4); POTASSIUM SERUM 4.2 MEQ/L (3.5-5.1); SODIUM LEVEL 140 MEQ/L (136-145); TOTAL PROTEIN 6.7 GM/DL (6.4-8.2)
[2018-06-17] MEDS ORDERED: MOM 30ML SUSPENSION UDC PO (09:00)
[2018-06-17] MEDS: MORPHINE 15 MG SA TAB PO ×2 (09:00→21:22)
[2018-06-17] MEDS: GABAPENTIN 300 MG CAP PO ×3 (10:48→21:23)
[2018-06-17] MEDS: VITAMIN B COMPLEX/VIT C CAP PO (10:48)
[2018-06-17] MEDS: ALLOPURINOL 100 MG TAB PO (10:49)
[2018-06-17] MEDS: FUROSEMIDE 40 MG TAB PO (10:50)
[2018-06-17] MEDS: CitaloPRAM (CeleXA) 20 MG TAB PO (10:50)
[2018-06-17] MEDS: MAGNESIUM OXIDE 400 MG TAB (MAG-OX) PO (10:50)
[2018-06-17] MEDS: MULTIVITAMINS/MINERALS THERAP 1 TAB PO (10:51)
[2018-06-17] MEDS: METOPROLOL TARTRATE 100 MG TAB PO (10:51)
[2018-06-17] MEDS: ASCORBIC ACID 500 MG TAB PO (10:51)
[2018-06-17] MEDS: PERCOCET 5MG/325MG TAB PO ×2 (10:51→16:36)
[2018-06-17] MEDS: SENNA 8.6 MG TAB (SENOKOT) PO ×2 (10:52→21:22)
[2018-06-17] MEDS: amLODIPine 5 MG TAB PO (10:52)
[2018-06-17] MEDS: PRAMIPEXOLE 1 MG TAB PO (21:21)
[2018-06-18] MEDS: PERCOCET 5MG/325MG TAB PO ×2 (00:14→18:18)
[2018-06-18] MEDS: SLF 3 ML SYR IV ×3 (03:22→21:04)
[2018-06-18] MEDS: MEROPENEM INJ 1 GM in APPROPRIATE DILUENT 1 EA IV ×3 (03:22→18:13)
[2018-06-18] MEDS: NYSTATIN 100,000 UNITS/GM TOPICAL PWD 15 GM TOP (08:12)
[2018-06-18] MEDS: SENNA 8.6 MG TAB (SENOKOT) PO ×2 (08:12→21:00)
[2018-06-18] MEDS: VITAMIN B COMPLEX/VIT C CAP PO (08:12)
[2018-06-18] MEDS: SPIRONOLACTONE 25 MG TAB PO (08:12)
[2018-06-18] MEDS: amLODIPine 5 MG TAB PO (08:13)
[2018-06-18] MEDS: GABAPENTIN 300 MG CAP PO ×3 (08:13→21:00)
[2018-06-18] MEDS: hydroCHLOROthiazide 25 MG TAB PO (08:14)
[2018-06-18] MEDS: MULTIVITAMINS/MINERALS THERAP 1 TAB PO (08:14)
[2018-06-18] MEDS: ASCORBIC ACID 500 MG TAB PO (08:14)
[2018-06-18] MEDS: MORPHINE 15 MG SA TAB PO ×2 (08:14→21:04)
[2018-06-18] MEDS: CitaloPRAM (CeleXA) 20 MG TAB PO (08:14)
[2018-06-18] MEDS: METOPROLOL TARTRATE 100 MG TAB PO (08:14)
[2018-06-18] MEDS: ALLOPURINOL 100 MG TAB PO (08:14)
[2018-06-18] MEDS: MAGNESIUM OXIDE 400 MG TAB (MAG-OX) PO (08:15)
[2018-06-18] MEDS: FUROSEMIDE 40 MG TAB PO (08:15)
[2018-06-18] MEDS: ENOXAPARIN 40 MG/0.4 ML SYRINGE (J1650) SC (16:42)
[2018-06-18] MEDS: PRAMIPEXOLE 1 MG TAB PO (21:01)
[2018-06-19] MEDS: MEROPENEM INJ 1 GM in APPROPRIATE DILUENT 1 EA IV ×2 (03:06→11:08)
[2018-06-19] MEDS: SLF 3 ML SYR IV ×2 (03:07→13:05)
[2018-06-19] MEDS: SENNA 8.6 MG TAB (SENOKOT) PO (09:00)
[2018-06-19] MEDS: ENOXAPARIN 40 MG/0.4 ML SYRINGE (J1650) SC (09:00)
[2018-06-19] MEDS: MAGNESIUM OXIDE 400 MG TAB (MAG-OX) PO (09:32)
[2018-06-19] MEDS: ASCORBIC ACID 500 MG TAB PO (09:32)
[2018-06-19] MEDS: MULTIVITAMINS/MINERALS THERAP 1 TAB PO (09:32)
[2018-06-19] MEDS: MORPHINE 15 MG SA TAB PO (09:33)
[2018-06-19] MEDS: FUROSEMIDE 40 MG TAB PO (09:33)
[2018-06-19] MEDS: METOPROLOL TARTRATE 100 MG TAB PO (09:33)
[2018-06-19] MEDS: ALLOPURINOL 100 MG TAB PO (09:34)
[2018-06-19] MEDS: GABAPENTIN 300 MG CAP PO (09:34)
[2018-06-19] MEDS: CitaloPRAM (CeleXA) 20 MG TAB PO (09:34)
[2018-06-19] MEDS: amLODIPine 5 MG TAB PO (09:34)
[2018-06-19] MEDS: VITAMIN B COMPLEX/VIT C CAP PO (09:41)
[2018-06-19] MEDS: NYSTATIN 100,000 UNITS/GM TOPICAL PWD 15 GM TOP (09:42)
== END 2018-06-19 16:33 | disposition home or self-care (01) | DRG 710 ==
LOC: M MSPAV 06-12 18:20 → M ED 14:40 → M ED INP 17:45 → M PCU 21:50
PROC: 0QBN0ZZ Excision of Right Metatarsal, Open Approach (ICD-10-PCS; principal; 2018-06-12 16:30)
PROC: 0QBP0ZZ Excision of Left Metatarsal, Open Approach (ICD-10-PCS; 2018-06-12 19:22)
DX: A41.9 Sepsis, unspecified organism (principal); I13.0 Hypertensive heart and chronic kidney disease with heart failure and stage 1 through stage 4 chronic kidney disease, or unspecified chronic kidney disease; I50.32 Chronic diastolic (congestive) heart failure; E11.51 Type 2 diabetes mellitus with diabetic peripheral angiopathy without gangrene; E11.622 Type 2 diabetes mellitus with other skin ulcer; E11.621 Type 2 diabetes mellitus with foot ulcer; E66.01 Morbid (severe) obesity due to excess calories; Z68.42 Body mass index [BMI] 45.0-49.9, adult; M86.172 Other acute osteomyelitis, left ankle and foot; E83.42 Hypomagnesemia; N18.3 Chronic kidney disease, stage 3 (moderate); M10.9 Gout, unspecified; G47.33 Obstructive sleep apnea (adult) (pediatric); G25.81 Restless legs syndrome; Z79.899 Other long term (current) drug therapy; Z88.0 Allergy status to penicillin; Z88.1 Allergy status to other antibiotic agents; Z88.2 Allergy status to sulfonamides; M62.830 Muscle spasm of back

== ENCOUNTER → 2018-11-26 | Outpatient (REF) | payer OTHER ==
[~2018-11-26] MED LIST: ALLO100T; ALLO100T PO; AMLO5TAB6; AMLO5TAB6 PO; ASPI1TAB PO; ASPI1TAB15 PO; CEFAD50CA PO; CITA-230 PO; CITA20TA4; DOXY-350 PO; FURO40TA2 PO; GABA-843 PO; GABA600T4 PO; LEVA750T7 PO; MAGN250T7 PO; METO100T5; METO100T5 PO; MORP-38 PO; OXYC1TAB23 PO; OXYCOD/APAP PO; PERCOCET PO; PRAM0.5T7; PRAM0.5T7 PO; SPIR1TAB34 PO; TIZA2TA; TIZA2TA PO; VITA500T88 PO; VITATAB11 PO; VITMTA PO
== END ==
LOC: M LAB REF 16:28
PROVIDERS: ATTEND Podiatrist Foot & Ankle Surgery
DX: L03.032 Cellulitis of left toe (principal)

== ENCOUNTER → 2020-06-11 | Outpatient (CLI) | payer OTHER ==
[~2020-06-11] MED LIST changes: +AMLO1TAB24; +AMLO1TAB24 PO; -AMLO5TAB6; -AMLO5TAB6 PO; +ASPI-546 PO; -ASPI1TAB PO; -ASPI1TAB15 PO; +ASPI81TA26 PO; -CITA-230 PO; -CITA20TA4; +CITA20TA6; +CITA20TA7 PO; +FENT12DI8 TD; +HYDR-3713 PO; -MORP-38 PO; +MORP-69 PO; +PRAM1TAB7 PO; +VITATAB73 PO
== END ==
LOC: M LABSMTC 10:06
PROVIDERS: ATTEND Podiatrist Foot & Ankle Surgery
DX: Z01.812 Encounter for preprocedural laboratory examination (principal); Z20.828 Contact with and (suspected) exposure to other viral communicable diseases
CPT/HCPCS: C9803; U0003

== ENCOUNTER 2020-06-16 10:51 | Day surgery (SDC) | payer MEDICARE, OTHER ==
[~2020-06-16] VITALS: Ht 177.8 cm; Wt 139.0 kg
[~2020-06-16 10:51] MED LIST changes: +CLINDAMYCIN 600 MG in IV 1 EA IV ONE; -HYDR-3713 PO; +LR 1,000 ML IV ONE
[2020-06-16] MEDS ORDERED: LIDOCAINE 2% 100MG/5ML SDV (FOR ANES.) As Ordered ONE (12:41)
[2020-06-16] MEDS ORDERED: MIDAZOLAM INJ 2MG/2ML VIAL (J2250 PER 1MG) As Ordered ONE (12:41)
[2020-06-16] MEDS ORDERED: propofoL 200 MG/20 ML VIAL As Ordered ONE ×2 (12:41→14:11)
[2020-06-16] MEDS ORDERED: fentaNYL 100 MCG/2 ML INJECTION (J3010) As Ordered ONE (12:43)
[2020-06-16] MEDS ORDERED: dexameTHASONE 4 MG/ML 1ML VIAL (J1100 PER 1MG) As Ordered ONE (12:58)
[2020-06-16] MEDS ORDERED: LIDOCAINE 1% MDV 20ML VIAL As Ordered ONE (12:58)
[2020-06-16] MEDS ORDERED: BUPIVACAINE HCL 0.5% 30 ML VIAL As Ordered ONE (12:58)
[2020-06-16] MEDS ORDERED: METOPROLOL 5 MG/5 ML VIAL As Ordered ONE (14:14)
[2020-06-16] MEDS ORDERED: HYDR-3713 PO (14:45)
[2020-06-16 15:25] VITALS: BP 132/69
--- NOTE | 2020-06-20 11:09 | ECGEPIP ---
[facility] Test Date: 2020-06-16 Pat Name: DENY ORTA Department: Room: - Gender: Male Nurse First Assist: RF : 1955 Requested By: Larry Castañeda Order Number: [id number] Reading MD: Edward Osorio Measurements Intervals [place] Rate: 58 P: 49 [place]: 184 QRS: 51 QRSD: 84 T: 24 QT: 418 QTc: 413 Interpretive Statements SINUS BRADYCARDIA Compared to prior tracings in the system, 06/10/18: heart rate was 91bpm and there w was artifact on the baseline Electronically Signed on 06-20-2020 11:09:01 EDT by Edward Osorio
--- NOTE | 2020-06-20 11:14 | ECGEPIP ---
[facility] Test Date: 2020-06-16 Pat Name: DENY ORTA Department: Room: - Gender: Male Assistant In Nursing: RF : 1955 Requested By: Larry Castañeda Order Number: [id number] Reading MD: Edward Osorio Measurements Intervals [place] Rate: 112 P: -84 [place]: 211 QRS: 42 QRSD: 88 T: 1 QT: 341 QTc: 467 Interpretive Statements SINUS TACHYCARDIA WITH BORDERLINE FIRST DEGREE AV BLOCK NONSPECIFIC T-WAVE ABNORMALITY Compared to prior 2 tracings in the system, sinus tachycardia is new Electronically Signed on 06-20-2020 11:14:33 EDT by Edward Osorio
--- NOTE | 2020-06-22 15:24 | RO ---
DATE OF OPERATION: 06/16/2020 SURGEON: Maury Byrnes DPM DIRECTOR RECREATION CENTER: None. PREOPERATIVE DIAGNOSIS: Hammertoe deformity left toes 2 and 3, right toes 2 and 4. POSTOPERATIVE DIAGNOSIS: Hammertoe deformity left toes 2 and 3, right toes 2 and 4. PROCEDURE: Right hammertoe correction toes 2 and 3 on left and 2 and 4 right. ANESTHESIA: Monitored anesthesia care. PREOP INJECTION: 10 mL of 1:1 mixture of 1% Lidocaine plain and 0.5% Marcaine plain. ESTIMATED BLOOD LOSS: None. MATERIALS: 3-0 Vicryl, 4-0 nylon. INJECTABLES: None. COMPLICATIONS: None. CONDITION: Stable. INDICATIONS: The patient is a 65-year-old diabetic male with longstanding hammertoe deformities. He has history of ulcerations stemming from these deformities and presents today for surgical correction. The patient side and site were identified and marked preoperatively. Consent was reviewed and obtained. All risks, complications and alternatives to the procedure were explained to the patient in detail and all questions were answered. PROCEDURE: The patient was brought to the operating room and placed on the operating table in supine position. Monitored anesthesia care was delivered by the anesthesia team. Preop injection of 10 mL of 1:1 mixture of 1% Lidocaine plain and 0.5% Marcaine plain was injected in both feet. Both feet were prepped and draped in normal sterile fashion. Tourniquets were applied at 250 mmHg. To all toes on the left 2 and 3 and on the right 2 and 4 dorsal incisions were made over the proximal interphalangeal joint and carried through with #15 blade. Extensor tenotomies were performed at this level exposing the proximal phalanx heads. The head of each of these toes was resected with sagittal saw. On the right 2nd toe and on the left 4th toe additional deformity was noted at the distal interphalangeal joint and the head of the middle phalanx was similarly resected. On all toes percutaneous flexor tenotomy was performed. Following this the extensor tendons were repaired using 3-0 Vicryl and all incisions were repaired using 4-0 nylon. Sterile dressings were applied. Tourniquets were deflated. The patient was brought to PACU with vital signs stable and neurovascular status intact. He will be weightbearing as tolerated, follow up in office in 2 days. [facility]
== END 2020-06-16 15:52 | disposition home or self-care (01) ==
LOC: M SDC 10:51
PROVIDERS: ATTEND Podiatrist Foot & Ankle Surgery
DX: M20.42 Other hammer toe(s) (acquired), left foot (principal); M20.41 Other hammer toe(s) (acquired), right foot; E11.40 Type 2 diabetes mellitus with diabetic neuropathy, unspecified; Z79.84 Long term (current) use of oral hypoglycemic drugs; Z79.52 Long term (current) use of systemic steroids; Z79.899 Other long term (current) drug therapy; I12.9 Hypertensive chronic kidney disease with stage 1 through stage 4 chronic kidney disease, or unspecified chronic kidney disease; N18.9 Chronic kidney disease, unspecified; Z91.040 Latex allergy status; Z88.0 Allergy status to penicillin; Z88.1 Allergy status to other antibiotic agents; Z88.2 Allergy status to sulfonamides
CPT/HCPCS: 28285; 88300; 93005; J1100; J2250; J3010

== ENCOUNTER → 2021-08-22 | Outpatient (REF) | payer MEDICARE ==
[~2021-08-22] MED LIST changes: +CEFA500C2 PO; -CEFAD50CA PO; -CLINDAMYCIN 600 MG in IV 1 EA IV ONE; +GABA-282 PO; -GABA-843 PO; +HYDR-3713 PO; -LR 1,000 ML IV ONE
[2021-08-22 19:30] LABS: HEMOGLOBIN A1c 7.5 %
== END ==
LOC: M LABWUC 15:53 → M LAB REF 15:53
PROVIDERS: ATTEND Surgery
DX: E11.621 Type 2 diabetes mellitus with foot ulcer (principal); L97.512 Non-pressure chronic ulcer of other part of right foot with fat layer exposed

== ENCOUNTER → 2021-09-19 | Outpatient (CLI) | payer MEDICARE ==
[~2021-09-19] MED LIST changes: +METF850T4 PO
== END ==
LOC: M LABSMTC 11:37
PROVIDERS: ATTEND Anesthesiology
DX: Z01.812 Encounter for preprocedural laboratory examination (principal); Z20.822 Contact with and (suspected) exposure to COVID-19

== ENCOUNTER 2021-09-21 08:30 | Day surgery (SDC) | payer MEDICARE ==
[~2021-09-21] VITALS: Ht 177.8 cm; Wt 132.0 kg
[~2021-09-21 08:30] MED LIST changes: +CLINDAMYCIN 600 MG in IV 1 EA IV ONE; +LIDOCAINE 1% MDV 20ML VIAL SQ PRN; +LR 1,000 ML IV ONE
[2021-09-21] MEDS ORDERED: LIDOCAINE 2% 100MG/5ML SDV (FOR ANES.) As Ordered ONE (10:09)
[2021-09-21] MEDS ORDERED: fentaNYL 100 MCG/2 ML INJECTION (J3010) As Ordered ONE (10:10)
[2021-09-21] MEDS ORDERED: LIDOCAINE 1% MDV 20ML VIAL As Ordered ONE (10:10)
[2021-09-21] MEDS ORDERED: propofoL 500 MG/50 ML VIAL As Ordered ONE (10:10)
[2021-09-21] MEDS ORDERED: MIDAZOLAM INJ 2MG/2ML VIAL (J2250 PER 1MG) As Ordered ONE (10:10)
[2021-09-21] MEDS ORDERED: BUPIVACAINE HCL 0.5% 10ML VIAL As Ordered ONE (10:11)
[2021-09-21] MEDS ORDERED: HYDR-3713 PO (11:23)
[2021-09-21 11:40] VITALS: BP 131/62
== END 2021-09-21 12:00 | disposition home or self-care (01) ==
LOC: M SDC 08:30
PROVIDERS: ATTEND Podiatrist Foot & Ankle Surgery
DX: E11.621 Type 2 diabetes mellitus with foot ulcer (principal); L97.519 Non-pressure chronic ulcer of other part of right foot with unspecified severity; M10.9 Gout, unspecified; I10 Essential (primary) hypertension; M06.9 Rheumatoid arthritis, unspecified; Z79.84 Long term (current) use of oral hypoglycemic drugs; Z79.899 Other long term (current) drug therapy; Z88.0 Allergy status to penicillin; Z88.1 Allergy status to other antibiotic agents; Z88.2 Allergy status to sulfonamides; Z91.040 Latex allergy status
CPT/HCPCS: 28122; 88304; 88311; 93005; J2250; J3010

== ENCOUNTER → 2021-10-19 | Outpatient (CLI) | payer MEDICARE ==
[~2021-10-19] MED LIST changes: -CLINDAMYCIN 600 MG in IV 1 EA IV ONE; -LIDOCAINE 1% MDV 20ML VIAL SQ PRN; -LR 1,000 ML IV ONE
== END ==
LOC: M RAD 14:07
PROVIDERS: ATTEND Podiatrist Foot & Ankle Surgery
DX: M79.604 Pain in right leg (principal); R59.0 Localized enlarged lymph nodes

== ENCOUNTER → 2021-12-09 | Outpatient (CLI) | payer MEDICARE | LOC: M LABSMTC 10:31 | PROVIDERS: ATTEND Anesthesiology | DX: Z01.818 Encounter for other preprocedural examination (principal); Z11.52 Encounter for screening for COVID-19 ==

== ENCOUNTER 2021-12-14 07:31 | Day surgery (SDC) | payer MEDICARE ==
[~2021-12-14] VITALS: Ht 177.8 cm; Wt 132.5 kg
[~2021-12-14 07:31] MED LIST changes: +BUPIVACAINE HCL 0.25% 30ML VIAL As Ordered ONE; +CLINDAMYCIN 600 MG in IV 1 EA IV ONE; +LIDOCAINE 1% MDV 20ML VIAL SQ PRN; +LIDOCAINE 1% SDV 30ML VIAL As Ordered ONE; +LR 1,000 ML IV ONE; +dexameTHASONE 4 MG/ML 1ML VIAL (J1100 PER 1MG) As Ordered ONE
[2021-12-14] MEDS ORDERED: fentaNYL 100 MCG/2 ML INJECTION As Ordered ONE (09:47)
[2021-12-14] MEDS ORDERED: propofoL 200 MG/20 ML VIAL As Ordered ONE (09:47)
[2021-12-14] MEDS ORDERED: ACETAMINOPHEN 1000MG 100ML IV BTL (OFIRMEV) (J0131 PER 10MG) As Ordered ONE (09:47)
[2021-12-14] MEDS ORDERED: KETOROLAC 60MG 2ML VIAL As Ordered ONE (09:47)
[2021-12-14] MEDS ORDERED: MIDAZOLAM INJ 2MG/2ML VIAL (J2250 PER 1MG) As Ordered ONE (09:47)
[2021-12-14] MEDS ORDERED: LIDOCAINE 2% 100MG/5ML SDV (FOR ANES.) As Ordered ONE (09:47)
[2021-12-14] MEDS ORDERED: ONDANSETRON 4MG/2ML VIAL As Ordered ONE (09:47)
[2021-12-14] MEDS ORDERED: DOXY100T27 PO (10:29)
[2021-12-14] MEDS ORDERED: HYDR-3713 PO (10:30)
[2021-12-14] MEDS ORDERED: ONDANSETRON 4MG/2ML VIAL IV PRN (10:55)
[2021-12-14] MEDS ORDERED: PERCOCET 5MG/325MG TAB PO PRN (10:55)
[2021-12-14] MEDS ORDERED: LR 1,000 ML IV SCH (10:55)
[2021-12-14 11:35] VITALS: BP 121/58
== END 2021-12-14 11:40 | disposition home or self-care (01) ==
LOC: M SDC 07:31
PROVIDERS: ATTEND Podiatrist Foot & Ankle Surgery
DX: E11.621 Type 2 diabetes mellitus with foot ulcer (principal); L97.529 Non-pressure chronic ulcer of other part of left foot with unspecified severity; I10 Essential (primary) hypertension; I50.9 Heart failure, unspecified; N18.9 Chronic kidney disease, unspecified; Z79.84 Long term (current) use of oral hypoglycemic drugs; Z79.899 Other long term (current) drug therapy; Z88.0 Allergy status to penicillin; Z88.2 Allergy status to sulfonamides; Z88.1 Allergy status to other antibiotic agents; Z91.040 Latex allergy status
CPT/HCPCS: 28122; 88304; J0131; J1885; J2250; J2405; J3010

== ENCOUNTER → 2022-03-15 | Outpatient (CLI) | payer MEDICARE ==
[~2022-03-15] MED LIST changes: -BUPIVACAINE HCL 0.25% 30ML VIAL As Ordered ONE; -CLINDAMYCIN 600 MG in IV 1 EA IV ONE; +DOXY100T27 PO; -LIDOCAINE 1% MDV 20ML VIAL SQ PRN; -LIDOCAINE 1% SDV 30ML VIAL As Ordered ONE; -LR 1,000 ML IV ONE; -dexameTHASONE 4 MG/ML 1ML VIAL (J1100 PER 1MG) As Ordered ONE
[2022-03-15 19:21] LABS: HEMOGLOBIN A1c 7.8 %
[2022-03-15 19:30] LABS: FERRITIN 99 NG/ML (26-388); IRON (FE) 47 UG/DL (65-175); PERCENT SATURATION 15.1 % (19.7-50.0); RHEUMATOID FACTOR QUANT < 10.0 IU/ML (<15.0); T UPTAKE 31 % (33-40); THYROXINE (T4) 9.7 UG/DL (4.5-12.0); TOTAL IRON BINDING CAPACITY 312 UG/DL (250-450)
[2022-03-15 19:41] LABS: FOLATE 8.8 NG/ML; VITAMIN B12 LEVEL 472 PG/ML
[2022-03-22 11:08] LABS: ANTINUCLEAR ANTIBODIES DIRECT Negative (Negative); VITAMIN B1 LEVEL WHOLE BLOOD 197.6 nmol/L (66.5-200.0); VITAMIN B6,PYRIDOXAL PHOSPHATE 47.6 ug/L (3.4-65.2); VITAMIN E(ALPHA TOCOPHEROL) 10.5 mg/L (9.0-29.0)
== END ==
LOC: M PLALAB 15:34
PROVIDERS: ATTEND Psychiatry & Neurology Neurology
DX: D50.9 Iron deficiency anemia, unspecified (principal); E07.9 Disorder of thyroid, unspecified; E53.9 Vitamin B deficiency, unspecified; Z79.899 Other long term (current) drug therapy

== ENCOUNTER → 2022-08-30 | Outpatient (CLI) | payer MEDICARE ==
[~2022-08-30] MED LIST changes: +BUSP15TA47; +DONE10TA90; -DOXY-350 PO; +DOXY-444 PO; +FARX1TAB5; +LEXA1TAB; +LEXA1TAB2
== END ==
LOC: M RAD 09:14
PROVIDERS: ATTEND Internal Medicine Hematology & Oncology
DX: R16.2 Hepatomegaly with splenomegaly, not elsewhere classified (principal); K80.20 Calculus of gallbladder without cholecystitis without obstruction

== ENCOUNTER → 2022-12-18 | Outpatient (CLI) | payer MEDICARE ==
[~2022-12-18] MED LIST changes: -BUSP15TA47; +BUSP15TA47 PO; -DONE10TA90; +DONE10TA90 PO; -LEXA1TAB2; +LEXA1TAB2 PO; +LIDOCAINE 1% MDV 20ML VIAL As Ordered ONE; +LORA1TAB4 PO
[2022-12-18 12:45] VITALS: BP 176/78
[2022-12-18 13:57] LABS: BASO % 0.5 % (0.0-1.0); EOS # 0.1 10^3/uL (0.0-0.5); EOS % 2.1 % (0.0-3.0); HEMATOCRIT 33.4 % (42.0-52.0); HEMOGLOBIN 11.3 g/dl (13.5-17.5); LYMPH # 1.3 10^3/uL (1.5-5.0); LYMPH % 30.9 % (24.0-44.0); MEAN CORPUSCULAR HEMOGLOBIN 31.8 pg (27.0-33.0); MEAN CORPUSCULAR HGB CONC 33.8 g/dl (32.0-36.5); MEAN CORPUSCULAR VOLUME 94.1 fl (80.0-96.0); MONO # 0.3 10^3/uL (0.0-0.8); MONO % 7.7 % (2.0-8.0); NEUTROPHILS # 2.5 10^3/uL (1.5-8.5); NEUTROPHILS % 58.3 % (36.0-66.0); PLATELET COUNT, AUTOMATED 101 10^3/uL (150-450); RED BLOOD COUNT 3.55 10^6/uL (4.30-6.10); WHITE BLOOD COUNT 4.3 10^3/uL (4.0-10.0)
== END ==
LOC: M IRPRO 12:29
PROVIDERS: ATTEND Nurse Practitioner
DX: D61.818 Other pancytopenia (principal)

== ENCOUNTER → 2023-02-28 | Outpatient (CLI) | payer MEDICARE ==
[~2023-02-28] MED LIST changes: +BELS1TAB2; +FENT1DIS14; +FENT1DIS34 TOP; +GASTROGRAFIN SOLUTION 30ML ONE; +ISOVUE-370 76% 100ML VIAL ONE; -LIDOCAINE 1% MDV 20ML VIAL As Ordered ONE; +LORA1TAB23 PO; -LORA1TAB4 PO
== END ==
LOC: M PLAIMG 12:24
PROVIDERS: ATTEND Internal Medicine Hematology & Oncology
DX: D64.9 Anemia, unspecified (principal); D69.6 Thrombocytopenia, unspecified
CPT/HCPCS: 74177; Q9963; Q9967